=== PATIENT | female | born 1990 | race Two or more races ===

== ENCOUNTER 2017-11-07 18:04 | Emergency (ER) | payer OTHER ==
[2017-11-07 18:34] LABS: BASOPHILS # (AUTO) 0.1 10^3/uL (0.0-0.1); BASOPHILS % (AUTO) 0.6 %; EOSINOPHILS # (AUTO) 0.2 10^3/uL (0.0-0.7); EOSINOPHILS % (AUTO) 1.9 %; HGB - HEMOGLOBIN 13.5 g/dL (12.0-16.0); LYMPHOCYTES % (AUTO) 32.7 %; MEAN CORPUSCULAR HGB CONC 33.4 g/dL (32.0-36.0); MEAN PLATELET VOLUME 8.1 fL (7.9-10.8); MONOCYTES # (AUTO) 0.5 10^3/uL (0.0-1.0); MONOCYTES % (AUTO) 5.4 %; NEUTROPHILS # (AUTO) 5.5 10^3/uL (1.5-6.6); NEUTROPHILS % (AUTO) 59.4 %; PLT - PLATELET COUNT 271 10^3/uL (130-450); RED CELL DISTRIBUTION WIDTH 12.7 % (12.0-15.0); WHITE BLOOD COUNT 9.3 x10^3/uL (4.8-10.8)
--- NOTE | 2017-11-07 18:39 | ED Physician Documentation ---
History of Present Illness - Stated complaint Stated Complaint: FEMALE /6WK OB - Chief complaint Chief Complaint: General - History obtained from History obtained from: Patient - History of Present Illness Timing: Other ( at 6 weeks gestation with cramping and slight bleeding today, just spotting. No fevers, urinary complaints.) Review of Systems Ten Systems: 10 systems reviewed and negative Constitutional: denies: Fever, Chills GI: reports: Abdominal Pain. denies: Nausea, Vomiting : denies: Dysuria, Frequency PD PAST MEDICAL HISTORY - Past Medical History Past Medical History: No - Present Medications Home Medications: Ambulatory Orders Medication Instructions Recorded Confirmed Pnv No.121/Iron/Folic Acid 1 tab PO DAILY 11/07/17 11/07/17 [ Multivitamin Tablet] - Allergies Allergies/Adverse Reactions: Allergies Allergy/AdvReac Type Severity Reaction Status Date / Time No Known Drug Allergies Allergy Verified 11/07/17 18:10 - Living Situation Living Situation: reports: With spouse/s.o. - Social History Does the pt smoke?: No Does the pt drink ETOH?: No - Family History Family history: reports: Non contributory PD ED PE NORMAL - Vitals Vital signs reviewed: Yes - General General: Alert and oriented X 3, No acute distress - HEENT HEENT: PERRL, EOMI - Neck Neck: Supple, no meningeal sign, No bony TTP - Cardiac Cardiac: RRR, No murmur - Respiratory Respiratory: No respiratory distress, Clear bilaterally - Abdomen Abdomen: Soft, Non tender - Female Female : Other (I am unable to visualize an intrauterine on bedside ultrasound) - Back Back: No CVA TTP, No spinal TTP - Derm Derm: Normal color, Warm and dry - Extremities Extremities: No edema, No calf tenderness / cord - Neuro Neuro: Alert and oriented X 3, Normal speech - Psych Psych: Normal mood, Normal affect Results - Vitals Vitals: Vital Signs - 24 hr 11/07/17 18:08 Temperature 36.8 C Heart Rate 79 Respiratory 16 Rate Blood Pressure 125/79 O2 Saturation 100 Oxygen O2 Source Room air - Labs Labs: Laboratory Tests 11/07/17 11/07/17 11/07/17 18:27 18:27 18:27 WBC 9.3 RBC 4.50 Hgb 13.5 Hct 40.5 MCV 90.0 MCH 30.0 MCHC 33.4 RDW 12.7 Plt Count 271 MPV 8.1 Neut # 5.5 Lymph # 3.0 [place] # 0.5 Eos # 0.2 Baso # 0.1 Absolute Nucleated RBC 0.01 Nucleated RBC % 0.1 Sodium Potassium Chloride Carbon Dioxide Anion Gap BUN Creatinine Estimated GFR (MDRD) Glucose Calcium HCG, Quant 35.86 Urine Color Urine Clarity Urine pH Ur Specific [place] Urine Protein Urine Glucose (UA) Urine Ketones Urine Occult Blood Urine Nitrite Urine Bilirubin Urine Urobilinogen Ur Leukocyte Esterase Urine RBC Urine WBC Ur Squamous Epith Cells Urine Bacteria Ur Microscopic Review Urine Culture Comments Blood Type A POSITIVE 11/07/17 11/07/17 18:27 19:10 WBC RBC Hgb Hct MCV MCH MCHC RDW Plt Count MPV Neut # Lymph # [place] # Eos # Baso # Absolute Nucleated RBC Nucleated RBC % Sodium 137 Potassium 3.5 Chloride 106 Carbon Dioxide 24 Anion Gap 7.0 BUN 8 Creatinine 0.7 Estimated GFR (MDRD) 102 Glucose 94 Calcium 9.1 HCG, Quant Urine Color YELLOW Urine Clarity CLEAR Urine pH 5.5 Ur Specific [place] 1.020 Urine Protein NEGATIVE Urine Glucose (UA) NEGATIVE Urine Ketones NEGATIVE Urine Occult Blood LARGE H Urine Nitrite NEGATIVE Urine Bilirubin NEGATIVE Urine Urobilinogen 0.2 (NORMAL) Ur Leukocyte Esterase NEGATIVE Urine RBC TNTC H Urine WBC 0-3 Ur Squamous Epith Cells RARE Squamous Urine Bacteria None Seen Ur Microscopic Review INDICATED Urine Culture Comments NOT INDICATED Blood Type - Rads (name of study) OB sono Radiology: EMP read contemporaneously (No obvious intrauterine , there is an endometrial echo, potentially early spontaneous or blood products. Small amount of free fluid in a simple right ovarian cyst.) PD MEDICAL DECISION MAKING - ED course ED course: She says she had a ultrasound a week ago showing an intrauterine so this combination of findings likely represents a spontaneous . That said follow-up for serial beta hCGs was advised. Departure - Departure Disposition: 01 Home, Self Care Clinical Impression: Threatened affecting intrauterine Condition: Good Record reviewed to determine appropriate education?: Yes Instructions: ED Miscarriage Poss Follow-Up: [facility] [Provider Group] - Within 3 Days Comments: You should have a repeat beta-hCG with your medical care administrator in 2-3 days, let them know that your value today was 35. Return if worsening or if new symptoms develop.
[2017-11-07 18:43] LABS: CALCIUM 9.1 mg/dL (8.5-10.3); CREATININE 0.7 mg/dL (0.4-1.0)
[2017-11-07 19:16] LABS: BILIRUBIN,URINE NEGATIVE (NEGATIVE); CLARITY,URINE CLEAR (CLEAR); GLUCOSE, URINE (UA) NEGATIVE (NEGATIVE); KETONES,URINE (UA) NEGATIVE (NEGATIVE); LEUKOCYTE ESTERASE, URINE NEGATIVE (NEGATIVE); NITRITE,URINE NEGATIVE (NEGATIVE); OCCULT BLOOD,URINE LARGE (NEGATIVE); PH,URINE 5.5 PH (5.0-7.5); PROTEIN,URINE NEGATIVE (NEGATIVE); UROBILINOGEN,URINE 0.2 (NORMAL) E.U./dL (NORMAL)
[2017-11-07 19:34] LABS: BACTERIA,URINE None Seen /HPF (None Seen); RBC,URINE TNTC /HPF (0-5); SQUAMOUS EPITHELIAL CELL,UR RARE Squamous (<= Few)
--- NOTE | 2017-11-07 19:39 | Ultrasound Preliminary Report ---
Exam: US OB FIRST TRIMESTER IMPRESSION: 1. No intrauterine seen. Correlate clinically to determine if serial beta-hCG's and repeat pelvic ultrasound in 2 weeks indicated. 2. Hyperechoic avascular endometrial echo complex favors blood products, perhaps due to early spontan eous . Please note that a very early IUP not excluded at this point in time. 3. 1.9 x 1.4 x 1.4 cm simple right ovarian cyst. 4. Small amount of free cul-de-sac fluid. [facility] SITE ID: [id number]
--- NOTE | 2017-11-07 19:47 | Ultrasound Report ---
EXAM: FIRST TRIMESTER OBSTETRIC ULTRASOUND (Less than 11 weeks) EXAM DATE: 11/07/2017 07:25 PM. CLINICAL HISTORY: Vaginal bleeding and cramping today. . Beta hCG 35.86. LMP: 09/26/2017. COMPARISONS: None. TECHNIQUE: Transabdominal and transvaginal ultrasound examination with static image documentation. CLINICAL DATES: EGA 6 weeks 0 days with GELNDY 07/03/2018 based on LMP. ASSESSMENT: Gestational Sac: None seen. MATERNAL STRUCTURES: Uterus: Retroverted. Unremarkable. Cervix: Closed. Endometrial echo contents measures 16.1 mm with uniform increased echogenicity, without vascularity. Right Ovary/Adnexa: 1.9 x 1.4 x 1.4 cm simple cyst. The ovary measures 3.5 x 2.6 x 2.8 cm, volume 13. 3 cc. Left Ovary/Adnexa: 3.1 x 2.1 x 1.7 cm, volume 5.7 cc. Free Fluid: Small amount of free cul-de-sac fluid. Other: None. IMPRESSION: 1. No intrauterine seen. Correlate clinically to determine if serial beta-hCG's and repeat pelvic ultrasound in 2 weeks indicated. 2. Hyperechoic avascular endometrial echo complex favors blood products, perhaps due to early spontan eous . Please note that a very early IUP not excluded at this point in time. 3. 1.9 x 1.4 x 1.4 cm simple right ovarian cyst. 4. Small amount of free cul-de-sac fluid. [facility] Referring Provider Line: [phone] SITE ID: [id number]
[2017-11-07 20:15] VITALS: BP 120/76
== END 2017-11-07 20:15 | disposition home or self-care (01) ==
LOC: ED 18:04
DX: O20.0 Threatened abortion (principal); Z3A.01 Less than 8 weeks gestation of pregnancy
CPT/HCPCS: 36415; 76801; 76817; 80048; 81001; 81003; 84702; 85025; 86900; 86901; 87086; 99283